=== PATIENT | female | born 1995 | race Caucasian/White ===

== ENCOUNTER 2017-02-15 18:28 | Emergency (ER) | payer OTHER ==
[~2017-02-15] VITALS: Ht 162.6 cm; Wt 68.5 kg
[2017-02-15 18:34] VITALS: Ht 162.6 cm; Wt 68.5 kg
[2017-02-15] MEDS ORDERED: ACETAMINOPHEN 500 MG TAB PO STA (18:56)
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
[2017-02-15] MEDS ORDERED: ACET500C5 PO (21:15)
== END 2017-02-15 21:40 | disposition home or self-care (01) ==
LOC: FTE 18:28
DX: S19.9XXA Unspecified injury of neck, initial encounter (principal); S70.211A Abrasion, right hip, initial encounter; V49.40XA Driver injured in collision with unspecified motor vehicles in traffic accident, initial encounter
CPT/HCPCS: 72040; 73510; Z7502; Z7610